=== PATIENT | male | born 1965 | race African-American/Black ===

== ENCOUNTER 2017-10-14 15:42 | Emergency (ER) | payer SELFPAY ==
[~2017-10-14] VITALS: Ht 175.3 cm; Wt 72.6 kg
[2017-10-14 16:23] LABS: BASOPHILS % (AUTO) 0.7 % (0.0-2.0); EOSINOPHILS % (AUTO) 0.3 % (0.0-7.0); HEMATOCRIT 40.6 % (36.7-47.1); HEMOGLOBIN 13.9 g/dL (12.5-16.3); LYMPHOCYTES # (AUTO) 1.5 K/uL (20.0-40.0); LYMPHOCYTES % (AUTO) 25.8 % (20.5-51.5); MEAN CORPUSCULAR HEMOGLOBIN 30.4 uug (23.8-33.4); MEAN CORPUSCULAR HGB CONC 34 g/dL (32.5-36.3); MEAN CORPUSCULAR VOLUME 88.4 fL (73.0-96.2); MONOCYTES # (AUTO) 0.3 K/uL (2.0-10.0); MONOCYTES % (AUTO) 4.9 % (0.0-11.0); NEUTROPHILS % (AUTO) 68.3 % (38.5-71.5); PLATELET COUNT (AUTO) 181 K/uL (152-348); RED BLOOD CELL COUNT(AUTO) 4.59 MIL/uL (4.06-5.63); WHITE BLOOD COUNT (AUTO) 5.9 K/uL (3.6-10.2)
[2017-10-14 16:35] LABS: CARBON DIOXIDE 22 mmol/L (21-32); CHLORIDE 102 mmol/L (98-107); CREATININE 0.6 mg/dL (0.6-1.3); ETHANOL 365 MG/DL (0-0); GLUCOSE 102 mg/dL (74-106); POTASSIUM 3.8 mmol/L (3.5-5.1); UREA NITROGEN, BLOOD 5 mg/dL (7-18)
--- NOTE | 2017-10-14 16:38 | NUR ---
Dinner provided. Pt states he'll eat later.
[2017-10-14 16:39] LABS: ACETAMINOPHEN < 2.0 ug/mL (10-30); ALANINE AMINOTRANSFERASE 36 U/L (16-63); ALKALINE PHOSPHATASE 82 U/L (50-136); ASPARTATE AMINOTRANSFERASE 49 U/L (15-37); BILIRUBIN,DIRECT 0.1 mg/dL (0.0-0.2); BILIRUBIN,TOTAL 0.3 mg/dL (0.2-1.0); TOTAL PROTEIN, SERUM 6.9 g/dL (6.4-8.2)
--- NOTE | 2017-10-14 16:40 | NUR ---
Pt becomes agitated and attempts to run, stating "you guys not treating me." Security watching pt cod Elop[place].
[2017-10-14] MEDS ORDERED: HALOPERIDOL LACTATE 5 MG/1 ML VIAL IM ONE (16:45)
[2017-10-14] MEDS ORDERED: HALOPERIDOL LACTATE 5 MG/1 ML VIAL ONE (16:47)
--- NOTE | 2017-10-14 16:55 | NUR ---
crossing guard stated he is unable to provide 1:1 observation a this time due to staffing issue.
--- NOTE | 2017-10-14 18:01 | NUR ---
Pt eloped through the front entrance of the emergency room, hospital security and ER physician notified.
== END 2017-10-14 18:03 | disposition left against medical advice (07) ==
LOC: ER 15:42
DX: F10.129 Alcohol abuse with intoxication, unspecified (principal)
CPT/HCPCS: 36415; 85025; A4663; G0480; G0480-TC; J1630